=== PATIENT | male | born 1930 | race Caucasian/White ===

== ENCOUNTER 2017-07-17 16:42 | Emergency (ER) | payer OTHER, BC ==
[~2017-07-17] VITALS: Ht 172.7 cm; Wt 82.5 kg
[~2017-07-17 16:42] MED LIST: AMOXICILLIN500 MG PO; ASPIR-LOW81 MG PO; Aspirin E.C. PO; BUSPAR10 MG PO; BUSPAR7.5 MG PO; CARDIZEM CD240 MG PO; CARDIZEM60 MG PO; CERTAVITE WITH1 EAC1 PO; CIPRO250 MG PO; CIPROFLOXACIN500 M1 PO; CITALOPRAM HBR10 MG PO; COUMADIN1 MG PO; COUMADIN10 MG PO; DEPAKOTE ER250 MG PO; DESYREL 150 MG150 MG PO; DIGOXIN125 MCG PO; DONEPEZIL HCL10 MG PO; FAMOTIDINE20 MG PO; FLOMAX0.4 MG PO; FUROSEMIDE40 MG PO; HYDROCODON-ACE1 EAC7 PO; JANTOVEN3 MG PO; LEVO-T50 MCG PO; LEVOFLOXACIN750 MG PO; LEVOTHYROXINE25 MCG PO; LO-DOSE ASPIRIN81 M1 PO; LUMIGAN 0.50 DROP/22 BOTH EYES; MELATONIN5 M1 PO; METOPROLOL SUCC50 MG PO; METRONIDAZOLE500 MG PO; MOTRIN400 MG PO; MYCAMINE100 MG IV; PRAVASTATIN SOD40 MG PO; PROBIOTIC250 MG PO; PROSCAR5 MG PO; Q-TUSSIN DM SY240 ML PO; REFRESH OPTIVE10 ML BOTH EYES; TYLENOL REGULA325 MG PO; VENTOLIN HFA18 GM IH; VITAMIN D400 UNI1 PO; VITAMIN D5000 UNIT PO; VITAMIN E200 UNI2 PO; VITAMIN E400 UNIT PO; XARELTO15 MG PO; ZOSYN 3.373.375 GM/5 IV
[2017-07-17 17:28] LABS: BASOPHIL COUNT 0.1 K/uL (0-0.1); EOSINOPHIL (%) 2.1 % (0-5); EOSINOPHIL COUNT 0.2 K/uL (0-0.3); HEMATOCRIT 44.2 % (38.0-50.0); IMMATURE GRANULOCYTE COUNT 0.2 K/uL; INSTRUMENT ABS NEUTROPHIL CT 5.9 K/uL; MCH 30.2 PG (29.0-34.0); MCHC 33.3 G/DL (30.0-36.0); MCV 90.9 FL (86-99); MEAN PLAT.VOLUME 10.7 uM^3 (9.0-12.4); MONOCYTE (%) 9.5 % (3-12); MONOCYTE COUNT 0.8 K/uL (0-0.8); NEUTROPHIL (%) 73.2 % (45-76); NEUTROPHIL COUNT 5.9 K/uL (1.8-6.4); PLATELET COUNT 167 K/uL (156-360); RBC DIS.WIDTH-CV 13.1 % (11.8-14.6); RBC DIS.WIDTH-SD 43.1 % (39-53); RED BLOOD COUNT 4.86 M/uL (4.00-5.50)
[2017-07-17 17:35] LABS: INTER. NORMALIZED RATIO 3.5; PROTHROMBIN TIME 40.4 SEC (10.2-12.9)
[2017-07-17 17:38] LABS: CHLORIDE 104 mEq/L (99-109); POTASSIUM 4.3 mEq/L (3.7-5.4); SODIUM 136 mEq/L (136-147)
[2017-07-17 17:39] LABS: GLUCOSE 100 mg/dL (70-99)
[2017-07-17 17:41] LABS: ANION GAP 8 MEQ/L (2-14)
[2017-07-17 17:43] LABS: GFR ESTIMATE (CALCULATED) > 59 mL/min/
[2017-07-17 17:44] LABS: UREA NITROGEN (BUN) 21 mg/dL (9-23)
[2017-07-17 19:51] VITALS: BP 145/70
== END 2017-07-17 19:52 | disposition home or self-care (01) ==
LOC: EME → EDBD 16:42 → EME 19:52
PROVIDERS: Emergency Medicine
DX: F03.90 Unspecified dementia, unspecified severity, without behavioral disturbance, psychotic disturbance, mood disturbance, and anxiety (principal); S00.412A Abrasion of left ear, initial encounter; W19.XXXA Unspecified fall, initial encounter; I48.91 Unspecified atrial fibrillation; Z95.0 Presence of cardiac pacemaker; Z79.01 Long term (current) use of anticoagulants; Z79.82 Long term (current) use of aspirin; I10 Essential (primary) hypertension; E78.5 Hyperlipidemia, unspecified; E11.9 Type 2 diabetes mellitus without complications; Z79.84 Long term (current) use of oral hypoglycemic drugs; Z87.891 Personal history of nicotine dependence
CPT/HCPCS: 70450; 72125; 80048; 85025; 85610; 93005; 99281; 99285

== ENCOUNTER 2017-08-25 00:59 | Emergency (ER) | payer OTHER, BC ==
[~2017-08-25] VITALS: Ht 182.9 cm; Wt 82.1 kg
[2017-08-25 03:42] LABS: APPEARANCE CLEAR ((CLEAR)); BILIRUBIN NEGATIVE; BLOOD NEGATIVE; COLOR YELLOW ((YELLOW)); GLUCOSE (STRIP) NEGATIVE; KETONES NEGATIVE; LEUKOCYTES NEGATIVE; NITRITE NEGATIVE; PROTEIN (STRIP) NEGATIVE; SPECIFIC GRAVITY 1.009 (1.000-1.030); UCUL ADDED? NO
[2017-08-25 04:58] VITALS: BP 186/82
== END 2017-08-25 06:32 ==
LOC: EME → EDBD 00:59 → EME 00:59
PROVIDERS: Emergency Medicine
PROC: 0HQ0XZZ Repair Scalp Skin, External Approach (ICD-10-PCS; principal; 2017-08-25)
DX: S01.01XA Laceration without foreign body of scalp, initial encounter (principal); S80.01XA Contusion of right knee, initial encounter; F03.90 Unspecified dementia, unspecified severity, without behavioral disturbance, psychotic disturbance, mood disturbance, and anxiety; W19.XXXA Unspecified fall, initial encounter; I11.0 Hypertensive heart disease with heart failure; I50.9 Heart failure, unspecified; E78.5 Hyperlipidemia, unspecified; E11.9 Type 2 diabetes mellitus without complications; F41.9 Anxiety disorder, unspecified; K21.9 Gastro-esophageal reflux disease without esophagitis; M19.90 Unspecified osteoarthritis, unspecified site; Z95.0 Presence of cardiac pacemaker; Z87.891 Personal history of nicotine dependence; Z79.82 Long term (current) use of aspirin; Z79.01 Long term (current) use of anticoagulants
CPT/HCPCS: 70450; 72125; 73564; 81003; 99281; 99284